=== PATIENT | female | born 1985 | race Caucasian/White ===

== ENCOUNTER 2016-05-20 15:16 | Emergency (ER) | payer MEDICAID, OTHER ==
[2016-05-20 15:42] VITALS: BP 115/69
[2016-05-20] MEDS ORDERED: Albuterol HFA INHALER* 8 gm MDI INH ONE (16:39)
[2016-05-20] MEDS ORDERED: Clindamycin CAP* 150 MG PO ONE (16:39)
[2016-05-20] MEDS ORDERED: predniSONE TAB* 10 MG PO ONE (16:39)
--- NOTE | 2016-05-20 17:00 | ED ---
Oj Hoff Erika, scribed for Isaac Salas MD on 05/20/16 at 1645 . Skin Complaint - HPI Summary HPI Summary: Patient is a 31-year-old female presenting to the ED with a CC of a spot of erythema, edema, and pain on the right forearm. Pt reports she most recently used heroin this morning. She denies fever and chills. Pt also reports a cough with associated SOB and nausea after coughing spells. She reports she was diagnosed with bronchitis in March, and has not been improving. She states she has taken 2 rounds of Abx and 2 rounds of prednisone. Hx asthma, Hepatitis C. Denies FHx. Pt smokes, and rarely drinks. - History of Current Complaint Chief Complaint: EDExtremityUpper Time Seen by Provider: 05/20/16 16:20 Stated Complaint: COUGH/DIFF BREATHING Hx Obtained From: Patient Hx Last Menstrual Period: 03-26-16 Onset/Duration: Started Hours Ago, Traumatic - after IVDA, Still Present Timing: Constant Onset Severity: Mild Current Severity: Moderate Pain Intensity: 6 Pain Scale Used: 0-10 Numeric Skin Location: Arm - R Character: Redness, Raised, Painful Aggravating Symptom(s): Touch Alleviating Symptom(s): Nothing - Allergy/Home Medications Allergies/Adverse Reactions: Allergies Allergy/AdvReac Type Severity Reaction Status Date / Time Sulfa Antibiotics Allergy TROUBLE Verified 05/20/16 16:10 BREATHING PMH/Surg Hx/FS Hx/Imm Hx Endocrine/Hematology History: Denies: Hx Diabetes, Hx Thyroid Disease Cardiovascular History: Denies: Hx Congestive Heart Failure, Hx Deep Vein Thrombosis, Hx Hypertension , Hx Myocardial Infarction, Hx Pacemaker/ICD Respiratory History: Reports: Hx Asthma - Only uses inhaler as needed. Denies: Hx Chronic Obstructive Pulmonary Disease (COPD), Hx Lung Cancer, Hx Pneumonia, Hx Pulmonary Embolism GI History: Denies: Hx Gall Bladder Disease, Hx Gastrointestinal Bleed, Hx Ulcer, Hx Urosepsis History: Denies: Hx Kidney Stones, Hx Renal Disease Neurological History: Denies: Hx Dementia, Hx Migraine, Hx Seizures, Hx Transient Ischemic Attacks (TIA) Psychiatric History: Reports: Hx Anxiety, Hx Attention Deficit Hyperactivity Disorder - ADD, Hx Depression, Hx Inpatient Treatment, Hx Community Mental Health Tx, Hx Bipolar Disorder, Hx Substance Abuse, Other Psychiatric Issues/ Disorders - HX SUICIDAL IDEATION, HX INCARCIRATION @ [facility] Denies: Hx Eating Disorder, Hx Schizophrenia, Hx of Violent Episodes Against Others - Surgical History Surgery Procedure, Year, and Place: [address] SEGUNDO @ [facility] – [place] Hx Anesthesia Reactions: No - Immunization History Date of Tetanus Vaccine: Unk Date of Influenza Vaccine: Unk Infectious Disease History: Yes Infectious Disease History: Reports: Hx Hepatitis - Hepatitis C Denies: History Other Infectious Disease - HERPIES, Traveled Outside the [place] in Last 30 Days - Family History Known Family History: Negative: Cardiac Disease, Hypertension, Renal Disease - Social History Alcohol Use: Rare Hx Substance Use: Yes Substance Use Type: Reports: Cocaine, Heroin Hx Tobacco Use: Yes Smoking Status (MU): Heavy Every Day Tobacco Smoker Type: Cigarettes Amount Used/How Often: 5 ppd Review of Systems Negative: Fever, Chills Positive: Shortness Of Breath, Cough Positive: Nausea - associated with cough Skin: Other - red, painful, raised area at the right forearm All Other Systems Reviewed And Are Negative: Yes Physical Exam - Summary Physical Exam Summary: Vital signs: reviewed General: Patient is comfortable lying in stretcher with no signs of distress HEENT: within normal limits Lungs: CTA B/L CVS: S1 & S2 present. No murmurs appreciated. Abdomen: Soft, NT, Positive BS. Extremities: FROM x4, no edema, no cyanosis, positive pulses Neuro: Alert and oriented x 3. No acute neurological deficits. Skin: Warm and dry. Positive erythema areas on the ventral aspect of the right forearm. Triage Information Reviewed: Yes Vital Signs On Initial Exam: Initial Vitals Temp Pulse Resp BP Pulse Ox 97.8 F 88 16 115/69 100 05/20/16 15:35 05/20/16 15:35 05/20/16 15:35 05/20/16 15:35 05/20/16 15:35 Vital Signs Reviewed: Yes Diagnostics - Vital Signs Vital Signs Temp Pulse Resp BP Pulse Ox 05/20/16 15:35 97.8 F 88 16 115/69 100 - Laboratory Lab Statement: Any lab studies that have been ordered have been reviewed, and results considered in the medical decision making process. Course/Dx - Course Assessment/Plan: Patient is a 31-year-old female presenting to the ED with a CC of a spot of erythema, edema, and pain on the right forearm. Pt reports she most recently used heroin this morning. She denies fever and chills. Pt also reports a cough with associated SOB and nausea. Patient has cellulitis in the right forearm where she injected Heroin. No abscess. She will be given Clindamycin since she is allergic to Sulfa. She was advised to take Probiotics. She also reports dry cough. She has hx of asthma. She will be given Albuterol pump and prednisone. She will be discharged home with F/U of PMD. Patient was instructed to return to the emergency room immediately if any of the symptoms return or worsens. Patient understand and agree. Plan of care was discussed with the patient and understands and agrees. All questions were answered at patient satisfaction. There were no further complaints or concerns. Lung exam before discharge: CTA B/L. Good air exchange. No wheezing or crackles heard. CVS : S1 and S2 present. No murmurs appreciated. Patient is alert and oriented x 3. Patient is hemodynamically stable. Patient will be discharged home with follow up package crimper in the next 2-3 days - Differential Diagnoses - Skin Complaint Differential Diagnoses: Abscess, Cellulitis, Eczema - Diagnoses Provider Diagnoses: Cellulitis, Asthma Discharge - Discharge Plan Condition: Stable Disposition: HOME Prescriptions: Clindamycin CAP* [Cleocin 150 MG CAP*] 300 mg PO TID #60 cap predniSONE TAB* [Deltasone TAB*] 40 mg PO DAILY #8 tab Patient Education Materials: Cellulitis (ED) Referrals: Tobin Heaton MD [Primary Care Provider] - The documentation as recorded by the Oj hummel Erika accurately reflects the service I personally performed and the decisions made by , Isaac Salas MD.
== END 2016-05-20 16:58 | disposition home or self-care (01) ==
LOC: ED 15:16
DX: L03.113 Cellulitis of right upper limb (principal); J45.909 Unspecified asthma, uncomplicated; B19.20 Unspecified viral hepatitis C without hepatic coma; Z88.2 Allergy status to sulfonamides; F17.210 Nicotine dependence, cigarettes, uncomplicated
CPT/HCPCS: 99282; A9270-GY; J7512

== ENCOUNTER 2016-06-16 23:14 | Emergency (ER) | payer OTHER ==
[2016-06-16] MEDS ORDERED: Al Hydrox/Mg Hydrox/Simet LIQ* 30 ML UDC PO ONE (23:50)
[2016-06-16] MEDS ORDERED: Lidocaine 2% VISCOUS* 15 ML UDC PO ONE (23:50)
--- NOTE | 2016-06-17 00:07 | ED ---
Abdominal Pain/Female - HPI Summary HPI Summary: Patient presents for evaluation of epigastric abdominal pain for the last 1 day. Denies allev factors attempted or specific aggrav factors, systemic symptoms, trauma, food or drug association. - History of Current Complaint Chief Complaint: EDAbdPain Stated Complaint: 6 WKS PREG/ABD CRAMPS Time Seen by Provider: 06/16/16 23:34 Hx Obtained From: Patient, Family/Wire Stitcher Machine - Boyfriend Hx Last Menstrual Period: 03-26-16 Onset/Duration: Gradual Onset Timing: Constant Severity Initially: Mild Severity Currently: Mild Pain Intensity: 3 Location: Epigastric Allergies/Adverse Reactions: Allergies Allergy/AdvReac Type Severity Reaction Status Date / Time Sulfa Antibiotics Allergy TROUBLE Verified 05/20/16 16:10 BREATHING PMH/Surg Hx/FS Hx/Imm Hx Previously Healthy: Yes - Current IV Drug Abuser Endocrine/Hematology History: Denies: Hx Diabetes, Hx Thyroid Disease Cardiovascular History: Denies: Hx Congestive Heart Failure, Hx Deep Vein Thrombosis, Hx Hypertension , Hx Myocardial Infarction, Hx Pacemaker/ICD Respiratory History: Reports: Hx Asthma - Only uses inhaler as needed. Denies: Hx Chronic Obstructive Pulmonary Disease (COPD), Hx Lung Cancer, Hx Pneumonia, Hx Pulmonary Embolism GI History: Denies: Hx Gall Bladder Disease, Hx Gastrointestinal Bleed, Hx Ulcer, Hx Urosepsis History: Denies: Hx Kidney Stones, Hx Renal Disease Neurological History: Denies: Hx Dementia, Hx Migraine, Hx Seizures, Hx Transient Ischemic Attacks (TIA) Psychiatric History: Reports: Hx Anxiety, Hx Attention Deficit Hyperactivity Disorder - ADD, Hx Depression, Hx Inpatient Treatment, Hx Community Mental Health Tx, Hx Bipolar Disorder, Hx Substance Abuse, Other Psychiatric Issues/ Disorders - HX SUICIDAL IDEATION, HX INCARCIRATION @ [facility] Denies: Hx Eating Disorder, Hx Schizophrenia, Hx of Violent Episodes Against Others - Surgical History Surgery Procedure, Year, and Place: [address] SEGUNDO @ [facility] [place]x Anesthesia Reactions: No - Immunization History Date of Tetanus Vaccine: Unk Date of Influenza Vaccine: Unk Infectious Disease History: No Infectious Disease History: Reports: Hx Hepatitis - Hepatitis C Denies: History Other Infectious Disease - HERPIES, Traveled Outside the [place] in Last 30 Days - Family History Known Family History: Positive: None, Blood Disorder - Hemochromatosis. Negative: Cardiac Disease, Hypertension, Renal Disease - Social History Alcohol Use: Rare Hx Substance Use: Yes Substance Use Type: Reports: Cocaine, Heroin Substance Use Comment - Amount & Last Used: today Hx Tobacco Use: Yes Smoking Status (MU): Heavy Every Day Tobacco Smoker Type: Cigarettes Amount Used/How Often: 5 ppd Review of Systems Positive: Abdominal Pain. Negative: Vomiting, Diarrhea, Nausea Positive: no symptoms reported All Other Systems Reviewed And Are Negative: Yes Physical Exam Triage Information Reviewed: Yes Vital Signs On Initial Exam: Initial Vitals Temp Pulse Resp BP Pulse Ox 97.9 F 86 17 101/41 98 06/16/16 23:28 06/16/16 23:28 06/16/16 23:28 06/16/16 23:28 06/16/16 23:28 Vital Signs Reviewed: Yes Appearance: Positive: Well-Appearing, No Pain Distress, Well-Nourished Skin: Positive: Warm, Skin Color Reflects Adequate Perfusion, Dry Respiratory/Lung Sounds: Positive: Clear to Auscultation, Breath Sounds Present Cardiovascular: Positive: Normal, RRR, Pulses are Symmetrical in both Upper and Lower Extremities Abdomen Description: Positive: No Organomegaly, Soft, Other: - Epigastric TTP. Negative: CVA Tenderness (R), CVA Tenderness (L), Distended, Guarding Musculoskeletal: Positive: Normal, Strength/ROM Intact Neurological: Positive: Normal, Sensory/Motor Intact, Alert, Oriented to Person Place, Time, CN Intact II-III Diagnostics - Vital Signs Vital Signs Temp Pulse Resp BP Pulse Ox 06/16/16 23:28 97.9 F 86 17 101/41 98 - Laboratory Result Diagrams: 06/17/16 00:46 06/17/16 00:46 Lab Statement: Any lab studies that have been ordered have been reviewed, and results considered in the medical decision making process. Abdominal Pain Fem Course/Dx - Course Course Of Treatment: Sleeping in no acute distress, but suddenly is uncomfortable when any provider is in the room. - Diagnoses Differential Diagnosis: Positive: Gall Bladder Disease, Pancreatitis, Other - Unclear cause for the epigastric pain, but concern for GERD. Soft benign abdomen. She demanded suboxone and ultrasound for , but did not understand the reason for the bloodwork although discussed with she and boyfriend. She required ultrasound guided PIV, but when she demanded it to be taken it out was extremely dramatic about it being ripped out. Provider Diagnoses: Drug-seeking behavior, Abdominal pain during intrauterine Discharge - Discharge Plan Condition: Stable Disposition: AGAINST MEDICAL ADVICE Patient Education Materials: Abdominal Pain in (ED) Referrals: Tobin Heaton MD [Primary Care Provider] -
[2016-06-17 00:58] LABS: Hematocrit 34 % (35-47); Hemoglobin 11.3 g/dl (12.0-16.0); Mean Corpuscular HGB Conc 33 g/dl (31-36); Mean Corpuscular Hemoglobin 30 pg (27-31); Mean Corpuscular Volume 90 fL (80-97); Mean Platelet Volume 8 um3 (7.4-10.4); Red Blood Count 3.77 10^6/ul (4.0-5.4); Red Cell Distribution Width 14 % (10.5-15); White Blood Count 9.2 10^3/ul (3.5-10.8)
[2016-06-17 01:10] LABS: ALT 82 U/L (7-52); AST 48 U/L (13-39); Albumin 3.7 g/dL (3.2-5.2); Alkaline Phosphatase 48 U/L (34-104); Anion Gap 5 mmol/L (2-11); BUN/Creatinine Ratio 19.2 (8-20); Blood Urea Nitrogen 14 mg/dL (6-24); CO2 Carbon Dioxide 25 mmol/L (22-32); Calcium 9.4 mg/dL (8.6-10.3); Chloride 102 mmol/L (101-111); EGFR African American 119.6 (>60); Globulin 2.9 g/dL (2-4); Glucose 94 mg/dL (70-100); Lipase < 10 U/L (11.0-82.0); Potassium 3.7 mmol/L (3.5-5.0); Sodium 132 mmol/L (133-145); Total Protein 6.6 g/dL (6.4-8.9)
[2016-06-17 05:44] VITALS: BP 106/61
--- NOTE | 2016-06-17 11:40 | RAD ---
HISTORY: Epigastric pain and a female COMPARISONS: None TECHNIQUE: Multiple transverse and longitudinal ultrasound images were obtained of the pelvis using grayscale, color flow, spectral and M-mode sonographic imaging. 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 GESTATION: There is a single live intrauterine gestation identified in the right endometrial horn. A yolk sac is present. A small amount of subchorionic hemorrhage measuring less than 2 mm in thickness is identified. The crown-rump length measures 0.5 cm yielding a gestational age of 6 weeks and 2 days. The mean gestational sac diameter measures 1.8 centimeters yielding a gestational age of 6 weeks and 6 days. cardiac motion is detected at a rate of 105 beats per minute. CUL-DE-SAC: There is no free fluid within the cul-de-sac. RIGHT OVARY: The right ovary measures 5 x 2.7 x 3.4 cm. The echogenic and avascular 2.4 cm in the right ovary is most consistent with a corpus luteum. LEFT OVARY: The left ovary measures 3.4 x 2.1 x 2.7 cm. IMPRESSION: 1. Single live intrauterine gestation located in the right horn of the patient's bicornuate uterus with a pole length corresponding to a gestational age of 6 weeks and 2 days. 2. The heart rate is measured at 105 bpm, a low normal value. 3. A very small subchorionic hemorrhage is noted.
== END 2016-06-17 05:43 | disposition home or self-care (01) ==
LOC: ED 23:14
DX: Z34.90 Encounter for supervision of normal pregnancy, unspecified, unspecified trimester (principal); R10.13 Epigastric pain; F17.210 Nicotine dependence, cigarettes, uncomplicated
CPT/HCPCS: 36415; 76817; 80053; 83690; 85027; 99283; A9270-GY

== ENCOUNTER 2016-07-04 08:29 | Emergency (ER) | payer OTHER ==
[2016-07-04 08:36] VITALS: BP 98/43
== END 2016-07-04 08:45 | disposition home or self-care (01) ==
LOC: ED 08:29
DX: R11.10 Vomiting, unspecified (principal); Z53.21 Procedure and treatment not carried out due to patient leaving prior to being seen by health care provider

== ENCOUNTER 2016-07-08 22:13 | Emergency (ER) | payer OTHER ==
[2016-07-08 22:24] VITALS: BP 108/57
[2016-07-08] MEDS ORDERED: Cyclobenzaprine TAB* 10 MG PO ONE (22:47)
[2016-07-08] MEDS ORDERED: Lidocaine PATCH 5%* 1 PATCH TRANSDERM ONE (23:00)
--- NOTE | 2016-07-08 23:21 | ED ---
Back Pain - HPI Summary HPI Summary: Patient is a 31 yo 9 week female who presents to ED with low back pain x 1 day. She states the pain is 10/10 and denies trauma or injury to the area. She has a history of sciatica, but states this feels different. Patient is an opioid addict and is seeking help with Dr. Estrella. She admits to using today and everyday. She denies care. Patient denies urinary symptoms. Denies numbness or tingling. This is her second and first was without complications. She is asking for something for pain, but provider agreed to provide lidocaine patches with follow up with PCP. Denies fever, SOB , chest pain or other symptoms. - History of Current Complaint Chief Complaint: EDBackInjuryPain Stated Complaint: LOWER BACK/9 WK PREG Time Seen by Provider: 07/08/16 22:30 Hx Obtained From: Patient Hx Last Menstrual Period: 03-26-16 Onset/Duration: Sudden Onset Onset/Duration: Started Days Ago Timing: Constant Back Pain Location: Is Discrete @ - lower back at L4-L5 Severity Initially: Severe Severity Currently: Severe Pain Intensity: 7 Pain Scale Used: 0-10 Numeric Character: Sharp, Spasmodic Associated Signs And Symptoms: Positive: Negative - Risk Factors AAA Risk Factors: Negative TAD Risk Factors: Epidural Abscess Risk Factors: Negative - Allergies/Home Medications Allergies/Adverse Reactions: Allergies Allergy/AdvReac Type Severity Reaction Status Date / Time Sulfa Antibiotics Allergy TROUBLE Verified 07/04/16 08:32 BREATHING PMH/Surg Hx/FS Hx/Imm Hx Previously Healthy: Yes - patient is opioid addict and used today Endocrine/Hematology History: Denies: Hx Diabetes, Hx Thyroid Disease Cardiovascular History: Denies: Hx Congestive Heart Failure, Hx Deep Vein Thrombosis, Hx Hypertension , Hx Myocardial Infarction, Hx Pacemaker/ICD Respiratory History: Reports: Hx Asthma - Only uses inhaler as needed. Denies: Hx Chronic Obstructive Pulmonary Disease (COPD), Hx Lung Cancer, Hx Pneumonia, Hx Pulmonary Embolism GI History: Denies: Hx Gall Bladder Disease, Hx Gastrointestinal Bleed, Hx Ulcer, Hx Urosepsis History: Denies: Hx Kidney Stones, Hx Renal Disease Neurological History: Denies: Hx Dementia, Hx Migraine, Hx Seizures, Hx Transient Ischemic Attacks (TIA) Psychiatric History: Reports: Hx Anxiety, Hx Attention Deficit Hyperactivity Disorder - ADD, Hx Depression, Hx Inpatient Treatment, Hx Community Mental Health Tx, Hx Bipolar Disorder, Hx Substance Abuse, Other Psychiatric Issues/ Disorders - HX SUICIDAL IDEATION, HX INCARCIRATION @ [facility] Denies: Hx Eating Disorder, Hx Schizophrenia, Hx of Violent Episodes Against Others - Surgical History Surgery Procedure, Year, and Place: [address] SEGUNDO @ [facility] – [place] Hx Anesthesia Reactions: No - Immunization History Date of Tetanus Vaccine: Unk Date of Influenza Vaccine: Unk Infectious Disease History: Yes Infectious Disease History: Reports: Hx Hepatitis - Hepatitis C Denies: History Other Infectious Disease - HERPIES, Traveled Outside the [place] in Last 30 Days - Family History Known Family History: Positive: None, Blood Disorder - Hemochromatosis. Negative: Cardiac Disease, Hypertension, Renal Disease - Social History Occupation: Unemployed Lives: With Family Alcohol Use: None Hx Substance Use: Yes - opioid addict Substance Use Type: Reports: Heroin Substance Use Comment - Amount & Last Used: today Hx Tobacco Use: Yes Smoking Status (MU): Light Every Day Tobacco Smoker Type: Cigarettes Amount Used/How Often: 5 ppd Review of Systems Constitutional: Negative Eyes: Negative Cardiovascular: Negative Respiratory: Negative Positive: Arthralgia, Myalgia - lower back pain at l4-l5 Skin: Negative Neurological: Negative Positive: Depressed All Other Systems Reviewed And Are Negative: Yes Physical Exam Triage Information Reviewed: Yes Vital Signs On Initial Exam: Initial Vitals Temp Pulse Resp BP Pulse Ox 97.9 F 82 16 108/57 100 07/08/16 22:20 07/08/16 22:20 07/08/16 22:20 07/08/16 22:20 07/08/16 22:20 Vital Signs Reviewed: Yes Completion Of Physical Exam Limited Due To: Altered Mental Status Appearance: Positive: Ill-Appearing, Pain Distress, Thin Skin: Positive: Skin Color Reflects Adequate Perfusion, Other - dry mucous membranes Eyes: Positive: Other: - patient with midriasis ENT: Positive: Hearing grossly normal Neck: Positive: Nontender, No Lymphadenopathy Respiratory/Lung Sounds: Positive: Breath Sounds Present Cardiovascular: Positive: Normal Abdomen Description: Positive: Nontender Musculoskeletal: Positive: Other - Thorough physical exam was performed, focusing on thoracic and lumbar special tests and ROM. Due to patient pain around injury, physical exam was limited. Limited ROM. Flip Test negative. Straight leg raise positive. Kernig test positive. Negative Babinksi. Hip flexion and extension, knee extension, dorsiflexion, great toe extension and plantar flexion intact. Rotating at hips limited d/t pain. Nerve roots L4-S2 reflexes intact. L1-S2 nerve root sensory intact. No saddle anesthesia. Gait normal. Neurological: Positive: Normal, Sensory/Motor Intact, Alert, Oriented to Person Place, Time Psychiatric: Positive: Normal AVPU Assessment: Alert - Jenny Coma Scale Best Eye Response: 4 - Spontaneous Best Motor Response: 6 - Obeys Commands Best Verbal Response: 5 - Oriented Coma Scale Total: 15 Diagnostics - Vital Signs Vital Signs Temp Pulse Resp BP Pulse Ox 07/08/16 22:20 97.9 F 82 16 108/57 100 - Laboratory Lab Statement: Any lab studies that have been ordered have been reviewed, and results considered in the medical decision making process. Back Pain Course/Dx - Course Course Of Treatment: Patient given flexeril for pain relief. Given Lidocaine patch and prescribed 5 lidocaine patches for home. Encouraged follow up with [facility]. Patient is opioid addict. Encouraged tylenol for discomfort and educated patient on typical back pain symptoms and length of recovery. Patient requesting heating pads. RN educated patient about heating pads with lidocaine patch and concern for burning the skin. Patient states she does not care and is using the heating pads given to her despite RN recommendation. Urine showed 1+ leuks and 1+ RBC's. Patient without symptoms. Will not treat at this time. Encouraged cranberry use and fluids. - Diagnoses Differential Diagnosis/HQI/PQRI: Positive: Strain, Sprain, Other Provider Diagnoses: Back pain Images - Images Full Body (No Head): 1 - pain on palpation Discharge - Discharge Plan Condition: Stable Disposition: HOME Prescriptions: Lidocaine PATCH 5%* [Lidoderm 5% Patch*] 1 patch TRANSDERM DAILY #5 patch MDD 1 Patient Education Materials: Lidocaine Patch (On the skin) Referrals: Tobin Heaton MD [Primary Care Provider] - Additional Instructions: Follow up with Dr. Estrella and OBGYN. Lidocaine patch should be used for 12 hours and then taken off. You may apply another one after waiting 12 hours. Tylenol 650mg three times daily with meals as needed for discomfort. Return to ED if symptoms worsen or fail to improve, notice worsening swelling, warmth or redness around the joint, develop fever, or pain is uncontrolled with OTC medications. Moist heat to the area for comfort. Warm showers or baths may improve symptoms. It is important to remain mobile as tolerated to prevent stiffening of the joints and delay healing. Follow up with your PCP. If symptoms remain for > 6 weeks, please seek special medical attention from an orthopedic physician.
[2016-07-08 23:30] LABS: Budding Yeast Present (Absent); Urine Bacteria 1+ (Absent); Urine Bilirubin Negative (Negative); Urine Glucose Negative (Negative); Urine Nitrite Negative (Negative)
--- NOTE | 2016-07-09 13:29 | ED ---
Back Pain - HPI Summary HPI Summary: Patient is a 31 yo 9 week female who presents to ED with low back pain x 1 day. She states the pain is 10/10 and denies trauma or injury to the area. She has a history of sciatica, but states this feels different. Patient is an opioid addict and is seeking help with Dr. Estrella. She admits to using today and everyday. She denies care. Patient denies urinary symptoms. Denies numbness or tingling. This is her second and first was without complications. She is asking for something for pain, but provider agreed to provide lidocaine patches with follow up with PCP. Denies fever, SOB , chest pain or other symptoms. - History of Current Complaint Chief Complaint: EDBackInjuryPain Stated Complaint: LOWER BACK/9 WK PREG Time Seen by Provider: 07/08/16 22:30 Hx Obtained From: Patient Hx Last Menstrual Period: 03-26-16 Onset/Duration: Sudden Onset Onset/Duration: Started Days Ago Timing: Constant Back Pain Location: Is Discrete @ - lower back at L4-L5 Severity Initially: Severe Severity Currently: Severe Pain Intensity: 7 Pain Scale Used: 0-10 Numeric Character: Sharp, Spasmodic Associated Signs And Symptoms: Positive: Negative - Risk Factors AAA Risk Factors: Negative TAD Risk Factors: Epidural Abscess Risk Factors: Negative - Allergies/Home Medications Allergies/Adverse Reactions: Allergies Allergy/AdvReac Type Severity Reaction Status Date / Time Sulfa Antibiotics Allergy TROUBLE Verified 07/04/16 08:32 BREATHING PMH/Surg Hx/FS Hx/Imm Hx Endocrine/Hematology History: Denies: Hx Diabetes, Hx Thyroid Disease Cardiovascular History: Denies: Hx Congestive Heart Failure, Hx Deep Vein Thrombosis, Hx Hypertension , Hx Myocardial Infarction, Hx Pacemaker/ICD Respiratory History: Reports: Hx Asthma - Only uses inhaler as needed. Denies: Hx Chronic Obstructive Pulmonary Disease (COPD), Hx Lung Cancer, Hx Pneumonia, Hx Pulmonary Embolism GI History: Denies: Hx Gall Bladder Disease, Hx Gastrointestinal Bleed, Hx Ulcer, Hx Urosepsis History: Denies: Hx Kidney Stones, Hx Renal Disease Neurological History: Denies: Hx Dementia, Hx Migraine, Hx Seizures, Hx Transient Ischemic Attacks (TIA) Psychiatric History: Reports: Hx Anxiety, Hx Attention Deficit Hyperactivity Disorder - ADD, Hx Depression, Hx Inpatient Treatment, Hx Community Mental Health Tx, Hx Bipolar Disorder, Hx Substance Abuse, Other Psychiatric Issues/ Disorders - HX SUICIDAL IDEATION, HX INCARCIRATION @ [facility]ARY Denies: Hx Eating Disorder, Hx Schizophrenia, Hx of Violent Episodes Against Others - Surgical History Surgery Procedure, Year, and Place: [address] SEGUNDO @ [facility] [place] Hx Anesthesia Reactions: No - Immunization History Date of Tetanus Vaccine: Unk Date of Influenza Vaccine: Unk Infectious Disease History: Yes Infectious Disease History: Reports: Hx Hepatitis - Hepatitis C Denies: History Other Infectious Disease - HERPIES, Traveled Outside the [place] in Last 30 Days - Family History Known Family History: Positive: None, Blood Disorder - Hemochromatosis. Negative: Cardiac Disease, Hypertension, Renal Disease - Social History Occupation: Unemployed Lives: With Family Alcohol Use: None Hx Substance Use: Yes - opioid addict Substance Use Type: Reports: Heroin Substance Use Comment - Amount & Last Used: today Hx Tobacco Use: Yes Smoking Status (MU): Light Every Day Tobacco Smoker Type: Cigarettes Amount Used/How Often: 5 ppd Review of Systems Constitutional: Negative Eyes: Negative Cardiovascular: Negative Respiratory: Negative Positive: Arthralgia, Myalgia - lower back pain at l4-l5 Skin: Negative Neurological: Negative Positive: Depressed All Other Systems Reviewed And Are Negative: Yes Physical Exam Triage Information Reviewed: Yes Vital Signs On Initial Exam: Initial Vitals Temp Pulse Resp BP Pulse Ox 97.9 F 82 16 108/57 100 07/08/16 22:20 07/08/16 22:20 07/08/16 22:20 07/08/16 22:20 07/08/16 22:20 Vital Signs Reviewed: Yes Completion Of Physical Exam Limited Due To: Altered Mental Status Appearance: Positive: Ill-Appearing, Pain Distress, Thin Skin: Positive: Skin Color Reflects Adequate Perfusion, Other - dry mucous membranes Eyes: Positive: Other: - patient with midriasis ENT: Positive: Hearing grossly normal Neck: Positive: Nontender, No Lymphadenopathy Respiratory/Lung Sounds: Positive: Breath Sounds Present Cardiovascular: Positive: Normal Abdomen Description: Positive: Nontender Musculoskeletal: Positive: Other - Thorough physical exam was performed, focusing on thoracic and lumbar special tests and ROM. Due to patient pain around injury, physical exam was limited. Limited ROM. Flip Test negative. Straight leg raise positive. Kernig test positive. Negative Babinksi. Hip flexion and extension, knee extension, dorsiflexion, great toe extension and plantar flexion intact. Rotating at hips limited d/t pain. Nerve roots L4-S2 reflexes intact. L1-S2 nerve root sensory intact. No saddle anesthesia. Gait normal. Neurological: Positive: Normal, Sensory/Motor Intact, Alert, Oriented to Person Place, Time Psychiatric: Positive: Normal AVPU Assessment: Alert - Jenny Coma Scale Best Eye Response: 4 - Spontaneous Best Motor Response: 6 - Obeys Commands Best Verbal Response: 5 - Oriented Coma Scale Total: 15 Diagnostics - Vital Signs Vital Signs Temp Pulse Resp BP Pulse Ox 07/08/16 22:20 97.9 F 82 16 108/57 100 - Laboratory Lab Results: Lab Results 07/08/16 Range/Units 23:10 Urine Color Yellow Urine Appearance Cloudy Urine pH 5.0 (5-9) Ur Specific [place] 1.023 (1.010-1.030) Urine Protein Negative (Negative) Urine Ketones Negative (Negative) Urine Blood Negative (Negative) Urine Nitrate Negative (Negative) Urine Bilirubin Negative (Negative) Urine Urobilinogen Negative (Negative) Ur Leukocyte Esterase Trace H (Negative) Urine WBC (Auto) 1+(6-10/hpf) H (Absent) Urine RBC (Auto) 1+(3-5/hpf) H (Absent) Ur Squamous Epith Cells Present H (Absent) Urine Bacteria 1+ H (Absent) Urine Yeast Present H (Absent) Urine Glucose Negative (Negative) Urine Ascorbic Acid * H (Negative) Lab Statement: Any lab studies that have been ordered have been reviewed, and results considered in the medical decision making process. Back Pain Course/Dx - Course Course Of Treatment: Patient given flexeril for pain relief. Given Lidocaine patch and prescribed 5 lidocaine patches for home. Encouraged follow up with [facility]BG[facility]. Patient is opioid addict. Encouraged tylenol for discomfort and educated patient on typical back pain symptoms and length of recovery. Patient requesting heating pads. RN educated patient about heating pads with lidocaine patch and concern for burning the skin. Patient states she does not care and is using the heating pads given to her despite RN recommendation. Urine showed 1+ leuks and 1+ RBC's. Patient without symptoms. Will not treat at this time. Encouraged cranberry use and fluids. - Diagnoses Differential Diagnosis/HQI/PQRI: Positive: Strain, Sprain, Other Provider Diagnoses: Back pain Discharge - Discharge Plan Condition: Stable Disposition: HOME Prescriptions: Lidocaine PATCH 5%* [Lidoderm 5% Patch*] 1 patch TRANSDERM DAILY #5 patch MDD 1 Patient Education Materials: Lidocaine Patch (On the skin) Referrals: Tobin Heaton MD [Primary Care Provider] - Additional Instructions: Follow up with Dr. Estrella and OBGYN. Lidocaine patch should be used for 12 hours and then taken off. You may apply another one after waiting 12 hours. Tylenol 650mg three times daily with meals as needed for discomfort. Return to ED if symptoms worsen or fail to improve, notice worsening swelling, warmth or redness around the joint, develop fever, or pain is uncontrolled with OTC medications. Moist heat to the area for comfort. Warm showers or baths may improve symptoms. It is important to remain mobile as tolerated to prevent stiffening of the joints and delay healing. Follow up with your PCP. If symptoms remain for > 6 weeks, please seek special medical attention from an orthopedic physician.
--- NOTE | 2016-07-09 13:32 | PN ---
Progress Note - Progress Note Note: [facility] pharmacy called ED stating Lidoderm patches requires prior authorization. Provider will not prescribe pain medication or other respiratory depressant drugs d/t opioid use, current drug use and . Suggested to patient to use icy hot or other topicals to the area. Patient refused stating she does not like how it makes her feel. Encouraged Tylenol and to follow up with PCP regarding this ongoing issue.
== END 2016-07-08 23:56 | disposition home or self-care (01) ==
LOC: ED 22:13
DX: M54.5 Low back pain (principal); M54.9 Dorsalgia, unspecified; F32.9 Major depressive disorder, single episode, unspecified; Z3A.09 9 weeks gestation of pregnancy
CPT/HCPCS: 81003; 81015; 87086; 99283; A9270-GY